=== PATIENT | male | born 1965 | race Caucasian/White ===

== ENCOUNTER 2018-01-22 22:33 | Emergency (ER) | payer MEDICARE, MEDICAID, SELFPAY ==
[2018-01-22 22:36] VITALS: BP 154/94; PULSE 82; RESP 22; TEMP 36.2; O2SAT 96; BMI 31.5
--- NOTE | 2018-01-22 23:27 | ED_ITS ---
HPI - Dental/Oral General Chief complaint: Dental/Oral Stated complaint: STATES INFECTED TOOTH Time Seen by Provider: 01/22/18 22:43 Source: patient Mode of arrival: ambulatory Limitations: no limitations History of Present Illness HPI Narrative: Patient is a 52-year-old male with poor dentition here for evaluation of lower right-sided tooth pain. He states that he does have a dentist. He has seen his dentist regarding this tooth and states that he has an appointment next week to have it removed. States that it is become more painful over the past 24 hr. Has not tried anything for it. Related Data Home Medications Medication Instructions Recorded Confirmed Venlafaxine Hydrochloride 75 mg PO HS #0 05/27/11 (#VENLAFAXINE) clonazepam [Klonopin] 0.5 mg PO HS #0 05/27/11 divalproex [Depakote] 1,000 mg PO HS #0 05/27/11 lorazepam 2 mg PO PRN #0 05/27/11 quetiapine [Seroquel] 100 mg PO HS #0 05/27/11 ziprasidone HCl [Geodon] 160 mg PO HS #0 05/27/11 Previous Rx's Medication Instructions Recorded clindamycin HCl 300 mg PO QID 7 Days #28 cap 01/23/18 hydrocodone-acetaminophen [[place]] 1 tab PO Q6H PRN #7 tab 01/23/18 Allergies Allergy/AdvReac Type Severity Reaction Status Date / Time No Known Drug Allergies Allergy Verified 01/22/18 22:41 Review of Systems Constitutional Denies fatigue and Denies fever(s) ENT Ears, Nose, Mouth, and Throat: Reports dental pain, Denies dizziness, Denies dry mouth and Denies neck pain Cardiovascular Denies chest pain, Denies palpitations and Denies dyspnea Respiratory Denies dyspnea Musculoskeletal Denies neck pain Integumentary/Breasts Denies lesions and Denies rash Neurologic Denies dizziness Endocrine Denies fatigue and Denies palpitations Hematologic/Lymphatic Denies easy bleeding and Denies easy bruising PFSH Social History Smoking Status: Current every day smoker Comment: No pertinent past medical or surgical history. Exam Initial Vital Signs Initial Vital Signs: Vital Signs Temperature 97.1 F L 01/22/18 22:36 Pulse Rate 82 01/22/18 22:36 Respiratory Rate 22 01/22/18 22:36 Blood Pressure 154/94 H 01/22/18 22:36 Pulse Oximetry 96 01/22/18 22:36 Const General: cooperative, well developed, well groomed and No acute distress Orientation: alert, awake and oriented x3 HENMT Head: normal to inspection, normocephalic and atraumatic Face and sinus: normal facial exam Mouth: lip normal and tongue normal Teeth and gingiva: caries, poor dentition and other (Multiple missing tooth. Only has 2 teeth remaining lower right side with both of them being cracked with exposed dentin.) Resp Effort & Inspection: normal respiratory effort Skin Lesions: no lesions Rashes: no rashes Neuro General: alert, awake and oriented x3 Course Orders Ordered: Discontinued Medications Hydrocodone Bitart/Acetaminophen ([place] 5/325) 1 tab PO NOW ONE Stop: 01/22/18 23:28 Last Admin: 01/22/18 23:32 Dose: 1 tab Hydrocodone Bitart/Acetaminophen (Vicodin Prepack) 1 bottle MISC SEEINSTR ONE Stop: 01/23/18 00:29 Last Admin: 01/23/18 00:35 Dose: 1 bottle Clindamycin HCl (Cleocin) 300 mg PO NOW ONE Stop: 01/22/18 23:28 Last Admin: 01/22/18 23:32 Dose: 300 mg Vital Signs - 8 hr 01/22/18 22:36 01/23/18 00:37 Temperature 97.1 F L Pulse Rate 82 75 Respiratory Rate 22 16 Blood Pressure 154/94 H 136/75 H Pulse Oximetry 96 100 MDM - Dental/Oral MDM Narrative Medical decision making narrative: Patient with poor dentition and multiple cracked and missing teeth. He was given antibiotics and pain medication here in the emergency department. He was offered a dental block which he declined. He states that he does have a follow-up with his primary doctor next week. No abscess seen here that would require draining in the emergency department. I did place dental paste over the exposed tooth. Informed him that this is just a temporary measure. Will send home with antibiotics and some pain medication. He was instructed to contact his dentist on Wednesday. He was given return precautions. He expressed understanding and agreement with plan Discharge Plan Departure Patient Disposition: Home Clinical Impression: Pain, dental, Fracture of tooth Discharge Date/Time: 01/23/18 00:37 Interventions: ED Discharge Assessment Last Done: 01/23/18 00:37 Instructions: DI for Dental Pain Activity Restrictions/Additional Instructions: Recommend that you contact your dentist on Wednesday to confirm your appointment next week for the extraction. Take all the medications as directed. Return to the emergency department for any new or worsening symptoms. Prescriptions: New clindamycin HCl 300 mg capsule 300 mg PO QID 7 Days Qty: 28 RF: 0 hydrocodone-acetaminophen [[place]] 5-325 mg tablet 1 tab PO Q6H PRN (Reason: pain) Qty: 7 RF: 0 No Action divalproex [Depakote] 500 MG tablet,delayed release (DR/EC) 1,000 mg PO HS Qty: 0 RF: 0 ziprasidone HCl [Geodon] 80 MG capsule 160 mg PO HS Qty: 0 RF: 0 lorazepam 2 MG tablet 2 mg PO PRN Qty: 0 RF: 0 Venlafaxine Hydrochloride (#VENLAFAXINE) 75 mg PO HS Qty: 0 RF: 0 clonazepam [Klonopin] 0.5 MG tablet 0.5 mg PO HS Qty: 0 RF: 0 quetiapine [Seroquel] 100 MG tablet 100 mg PO HS Qty: 0 RF: 0
[2018-01-22] MEDS: CLINDAMYCIN 150 MG CAPSULE 300 MG PO (23:32)
[2018-01-22] MEDS: HYDROCODONE/ACET 5/325 TABLET 1 TAB PO (23:32)
[2018-01-23] MEDS: HYDROCODONE/ACET 5/325 PREPACK 1 BOTTLE MISC (00:35)
[2018-01-23 00:37] VITALS: BP 136/75; PULSE 75; RESP 16; O2SAT 100
== END 2018-01-23 00:37 | disposition home or self-care (01) ==
PROVIDERS: Emergency Provider Emergency Medicine; PCP Physician Assistant
DX: S02.5XXA Fracture of tooth (traumatic), initial encounter for closed fracture (principal)
CPT/HCPCS: 99282; 99283

== ENCOUNTER 2018-07-03 09:59 | Emergency (ER) | payer MEDICARE, MEDICAID, SELFPAY ==
[2018-07-03 10:05] VITALS: BP 137/93; PULSE 118; RESP 20; TEMP 36.6; O2SAT 94; BMI 31.5
--- NOTE | 2018-07-03 11:22 | ED.UPPEXIN ---
HPI - Extremity Injury (Upper) General Chief Complaint: Extremity Injury, Upper Stated Complaint: rt hand injury Time Seen by Provider: 07/03/18 11:05 Source: patient Mode of arrival: ambulatory Limitations: no limitations History of Present Illness HPI narrative: Patient is a 53-year-old male here for evaluation of a cut to his right hand. Patient states that he was in the bathtub earlier today brushing his teeth when he put his hand down and cut his hand on a piece of glass. He wrapped it in a bandage and duct tape. Does not remember when his last tetanus shot was. Him into the emergency department for evaluation secondary to the bleeding. Related Data Home Medications Medication Instructions Recorded Confirmed Venlafaxine Hydrochloride 75 mg PO HS #0 05/27/11 (#VENLAFAXINE) clonazepam [Klonopin] 0.5 mg PO HS #0 05/27/11 divalproex [Depakote] 1,000 mg PO HS #0 05/27/11 lorazepam 2 mg PO PRN #0 05/27/11 quetiapine [Seroquel] 100 mg PO HS #0 05/27/11 ziprasidone HCl [Geodon] 160 mg PO HS #0 05/27/11 Previous Rx's Medication Instructions Recorded hydrocodone-acetaminophen [[place]] 1 tab PO Q6H PRN #7 tab 01/23/18 cephalexin [Keflex] 500 mg PO BID 5 Days #10 cap 07/03/18 Allergies Allergy/AdvReac Type Severity Reaction Status Date / Time No Known Drug Allergies Allergy Verified 01/22/18 22:41 Review of Systems Constitutional Denies fever(s) Cardiovascular Denies chest pain and Denies dyspnea Respiratory Denies dyspnea Gastrointestinal Gastrointestinal: Denies abdominal pain Integumentary/Breasts Comments: Cut to the right hand Neurologic Comments: No tingling to the right hand Hematologic/Lymphatic Comments: Not on anticoagulation PFSH Medical History Anxiety (Acute) Social History Smoking Status: Current every day smoker Exam Initial Vital Signs Initial Vital Signs: Vital Signs Temperature 97.8 F 07/03/18 10:05 Pulse Rate 118 H 07/03/18 10:05 Respiratory Rate 20 07/03/18 10:05 Blood Pressure 137/93 H 07/03/18 10:05 Pulse Oximetry 94 07/03/18 10:05 Const General: cooperative, well developed, well groomed and No acute distress Orientation: alert and oriented x3 Resp Effort & Inspection: normal respiratory effort Cardio Pulses: radial pulses present on the right Skin Other: Patient with a 2 cm laceration on the thenar eminence of the right hand. Does have active bleeding. Neuro Other: Sensation intact to light touch right upper extremity Extrem Other: Right wrist unremarkable. Right hand unremarkable. Except for the cut see the skin section for details Psych Appearance: grossly normal and well kempt Procedures Laceration Repair Laceration 1: Site: hand Side (If applicable): right Size (cm): 2 Description: linear Depth: simple, single layer Local Anesthetic: lidocaine 1% and with epi Amount of anesthesia used (mL): 5 Pre-repair: wound explored, irrigated extensively and deep structures intact Skin layer closed with: nylon Size (cm): 4-0 Number of sutures: 2 Technique: simple, interrupted Course Orders Ordered: Discontinued Medications Diphtheria/Tetanus/Acell Pertussis (Adacel) 0.5 ml IM .ONCE ONE Stop: 07/03/18 11:23 Last Admin: 07/03/18 12:03 Dose: 0.5 ml Vital Signs - 8 hr 07/03/18 10:05 07/03/18 12:44 Temperature 97.8 F Pulse Rate 118 H 100 H Respiratory Rate 20 18 Blood Pressure 137/93 H 133/91 H Pulse Oximetry 94 94 MDM - Extremity Injury (Upper) MDM Narrative Medical decision making narrative: Patient did have active bleeding. This was controlled for the most part by lidocaine with epi. I did have to use some cautery to control the bleeding. Gel-Foam was placed as well. After observation here in the emergency department patient had no further bleeding so 2 stitches were placed over the area. Will send the patient home with antibiotics given the extensive exploration that was done in the cautery. His tetanus was updated. He was given return precautions. He expressed understanding and agreement with plan. Discharge Plan Departure Patient Disposition: Home Clinical Impression: Hand laceration Discharge Date/Time: 07/03/18 12:45 Interventions: ED Discharge Assessment Last Done: 07/03/18 12:44 Instructions: DI for Laceration Repair -- Simple Activity Restrictions/Additional Instructions: The stitches do need to be removed in 7-10 days. Leave the bandage on for the next 24 hr then after that you can take it off and wash your hands like normal. You can use soap and water like normal. Take the antibiotics as directed. Return to the emergency department for any new or worsening symptoms Prescriptions: New cephalexin [Keflex] 500 mg capsule 500 mg PO BID 5 Days Qty: 10 RF: 0 No Action divalproex [Depakote] 500 MG tablet,delayed release (DR/EC) 1,000 mg PO HS Qty: 0 RF: 0 ziprasidone HCl [Geodon] 80 MG capsule 160 mg PO HS Qty: 0 RF: 0 lorazepam 2 MG tablet 2 mg PO PRN Qty: 0 RF: 0 Venlafaxine Hydrochloride (#VENLAFAXINE) 75 mg PO HS Qty: 0 RF: 0 clonazepam [Klonopin] 0.5 MG tablet 0.5 mg PO HS Qty: 0 RF: 0 quetiapine [Seroquel] 100 MG tablet 100 mg PO HS Qty: 0 RF: 0 hydrocodone-acetaminophen [[place]] 5-325 mg tablet 1 tab PO Q6H PRN (Reason: pain) Qty: 7 RF: 0
[2018-07-03] MEDS: TET,DIPH,PERTUSS(ACELL),VAC/PF 0.5 ML SYRINGE IM (12:03)
[2018-07-03 12:44] VITALS: BP 133/91; PULSE 100; RESP 18; O2SAT 94
--- NOTE | 2018-07-03 13:06 | PC.NURSE ---
cleaned opposite hand with soapy water. Wrapped affected right hand after bacitracin ointment, guaze and conforming gauze wrap. instructed to leave on for 24 hours and then can remove. pt understands.
== END 2018-07-03 12:45 | disposition home or self-care (01) ==
PROVIDERS: Emergency Provider Emergency Medicine; PCP Physician Assistant
DX: S61.411A Laceration without foreign body of right hand, initial encounter (principal); W25.XXXA Contact with sharp glass, initial encounter
CPT/HCPCS: 12001; 90471; 99283; 90715

== ENCOUNTER 2018-11-28 09:18 | Emergency (ER) | payer MEDICARE, MEDICAID, SELFPAY ==
[2018-11-28 09:21] VITALS: BP 147/103; PULSE 96; RESP 18; TEMP 37.1; O2SAT 99; BMI 30.8
--- NOTE | 2018-11-28 09:36 | ED_ITS ---
HPI - Ear Problem General Chief complaint: Ear Stated complaint: something in right ear Time Seen by Provider: 11/28/18 09:18 Source: patient Mode of arrival: ambulatory Limitations: no limitations History of Present Illness HPI Narrative: 53-year-old male comes to the emergency department with complaint of foreign body in his right ear. He states on Wednesday this weekend, 2 days ago patient was wearing his headphones when he realized that the covering had slipped off inside his ear. He tried to get out with his finger but was unsuccessful. He was understandably concerned about attempting to remove it with tweezers or a similar attempted might cause increased injury. He tried to floated out with water. He states none of these were affected. He states it did not seem like that big of emergency so he waited until today to come to be seen. He states he has decreased hearing on that side, he denies pain, dizziness, he denies any swelling or new discharge from the ear. He denies any fevers or chills. Patient denies any other past medical history, denies any prior surgeries. Denies any allergies to medications. Related Data Home Medications Medication Instructions Recorded Confirmed Venlafaxine Hydrochloride 75 mg PO HS #0 05/27/11 (#VENLAFAXINE) clonazepam [Klonopin] 0.5 mg PO HS #0 05/27/11 divalproex [Depakote] 1,000 mg PO HS #0 05/27/11 lorazepam 2 mg PO PRN #0 05/27/11 quetiapine [Seroquel] 100 mg PO HS #0 05/27/11 ziprasidone HCl [Geodon] 160 mg PO HS #0 05/27/11 Previous Rx's Medication Instructions Recorded hydrocodone-acetaminophen [[place]] 1 tab PO Q6H PRN #7 tab 01/23/18 ofloxacin 5 drop EAR-RIGHT BID 5 Days #5 ml 11/28/18 Allergies Allergy/AdvReac Type Severity Reaction Status Date / Time No Known Drug Allergies Allergy Verified 11/28/18 09:21 Review of Systems Review of Systems ROS Unobtainable: All systems reviewed & are unremarkable except as noted in HPI and below Constitutional Denies chills, Denies fever(s), Denies headache(s), Denies lethargy and Denies weakness ENT Ears, Nose, Mouth, and Throat: Reports as per HPI, Reports abnormal hearing (Decreased), Denies dizziness, Denies ear discharge, Denies otalgia, Denies headache(s), Reports hearing loss (Decreased on right), Denies nasal congestion, Denies tinnitus and Reports other (Foreign body in right ear) Cardiovascular Denies chest pain and Denies dyspnea Respiratory Denies dyspnea Gastrointestinal Gastrointestinal: Denies nausea and Denies vomiting Integumentary/Breasts Denies erythema, Denies rash and Denies skin swelling Neurologic Reports abnormal hearing (Decreased), Denies dizziness, Denies headache(s) and Denies weakness [facility] Medical History Anxiety (Acute) Social History Smoking Status: Current every day smoker Social History Smoking Status: Current every day smoker Exam Narrative Exam Narrative: GEN: well nourished, well appearing male, alert and oriented x 3, patient appears to be in no acute distress. HEENT: Atraumatic, pupils are equal round reactive to light, extraocular movements are intact, nares are clear, left TM is are clear with no fluid, right ear canal has a foreign body that appears moves mai and plastic similar to in the ear buds the patient brought with him today. Throat is clear without any exudates, erythema, tonsillar enlargement or uvular deviation HEART: Regular rate and rhythm without murmur, clicks, rubs. LUNGS:Lungs clear to auscultation, no wheezes, rales, crackles, chest moves symmetrically MSCL: full range of motion, normal gait NEURO:CN 2-12 intact, sensation normal. Initial Vital Signs Initial Vital Signs: Vital Signs Temperature 98.7 F 11/28/18 09:21 Pulse Rate 96 H 11/28/18 09:21 Respiratory Rate 18 11/28/18 09:21 Blood Pressure 147/103 H 11/28/18 09:21 Pulse Oximetry 99 11/28/18 09:21 Procedures Foreign Body EAR Location: ear canal (R) Foreign Body Suspected: other plastic (Flexible soft plastic Ear bud from headphones) TM intact pre-procedure: unable to visualize Foreign Body Removed: yes Foreign Body Removal Technique: suction catheter (Suction without success, Attempted tweezers without success, then attempted palliative forceps with success.) Tympanic Membrane Intact Post Procedure: Yes Patient Tolerated Procedure: Well Complications: none Additional Comments: On evaluation patient does have some abrasion cir cumferentially along the canal of the TM with a slight amount of blood. Eardrum is intact. Course Vital Signs - 8 hr 11/28/18 09:21 Temperature 98.7 F Pulse Rate 96 H Respiratory Rate 18 Blood Pressure 147/103 H Pulse Oximetry 99 Medical Decision Making MDM Narrative Medical decision making narrative: Patient tolerated procedure well, foreign body was easily removed with a small amount of resistance. The patient appears to have a little bit of abrasion from the foreign body being placed since Wednesday. It is fairly circumferential with a small amount of blood. There is no other signs of infection but patient was given antibiotics to prevent infection. For recommendations regarding no additional foreign body. TM is intact. Patient feels comfortable with the plan. Patient is to return if any further or concerning symptoms. Discharge Plan Departure Patient Disposition: Home Clinical Impression: Acute foreign body of right ear canal Qualifiers: Encounter type: initial encounter Qualified Code(s): T16.1XXA - Foreign body in right ear, initial encounter Discharge Date/Time: 11/28/18 09:36 Instructions: DI for Removal of Foreign Body From Ear Activity Restrictions/Additional Instructions: Follow-up in the next 5-7 days if your symptoms are not completely resolved or have any continued drainage. Use ear drops as prescribed for the next 5 days. Do not some wrist your head/here, do not put any foreign objects in her ear, Q- tips or insert your finger. Return to the emergency department for fevers greater than 100.4 F, increasing pain, swelling, new redness, increasing drainage, pus or purulence drainage decrease in hearing or other new or concerning symptoms. Prescriptions: New ofloxacin 0.3 % drops 5 drop EAR-RIGHT BID 5 Days Qty: 5 RF: 0 No Action divalproex [Depakote] 500 MG tablet,delayed release (DR/EC) 1,000 mg PO HS Qty: 0 RF: 0 ziprasidone HCl [[place]] 80 MG capsule 160 mg PO HS Qty: 0 RF: 0 lorazepam 2 MG tablet 2 mg PO PRN Qty: 0 RF: 0 Venlafaxine Hydrochloride (#VENLAFAXINE) 75 mg PO HS Qty: 0 RF: 0 clonazepam [Klonopin] 0.5 MG tablet 0.5 mg PO HS Qty: 0 RF: 0 quetiapine [Seroquel] 100 MG tablet 100 mg PO HS Qty: 0 RF: 0 hydrocodone-acetaminophen [[place]] 5-325 mg tablet 1 tab PO Q6H PRN (Reason: pain) Qty: 7 RF: 0
== END 2018-11-28 09:36 | disposition home or self-care (01) ==
PROVIDERS: Emergency Provider Emergency Medicine
DX: T16.1XXA Foreign body in right ear, initial encounter (principal)
CPT/HCPCS: 69200; 99282; 99283